=== PATIENT | male | born 1950 | race Caucasian/White ===

== ENCOUNTER 2016-06-01 16:02 | Emergency (ER) | payer OTHER ==
[~2016-06-01] VITALS: Ht 172.7 cm; Wt 87.0 kg
[2016-06-01 16:40] LABS: HEMATOCRIT 41.6 % (38.0-50.0); MCH 31.9 PG (29.0-34.0); MCHC 34.4 G/DL (30.0-36.0); MCV 92.9 FL (86-99); MEAN PLAT.VOLUME 10.7 uM^3 (9.0-12.4); PLATELET COUNT 260 K/uL (156-360); RBC DIS.WIDTH-CV 11.9 % (11.8-14.6); RBC DIS.WIDTH-SD 39.5 % (39-53); RED BLOOD COUNT 4.48 M/uL (4.00-5.50); WHITE BLOOD COUNT 7.6 K/uL (4.1-10.2)
[2016-06-01 16:56] LABS: CHLORIDE 105 mEq/L (99-109); POTASSIUM 4.5 mEq/L (3.7-5.4); SODIUM 136 mEq/L (136-147)
[2016-06-01 16:58] LABS: GLUCOSE 87 mg/dL (70-99)
[2016-06-01 16:59] LABS: ANION GAP 10 MEQ/L (2-14)
[2016-06-01 17:02] LABS: GFR ESTIMATE (CALCULATED) > 59 mL/min/
[2016-06-01 17:03] LABS: TROP-I INTERPRETATION NEGATIVE; TROPONIN-I < 0.01 ng/mL (0.0-0.30); UREA NITROGEN (BUN) 9 mg/dL (9-23)
[2016-06-01 19:50] LABS: BILIRUBIN NEGATIVE; BLOOD NEGATIVE; COLOR YELLOW ((YELLOW)); GLUCOSE (STRIP) NEGATIVE; KETONES NEGATIVE; LEUKOCYTES NEGATIVE; NITRITE NEGATIVE; PROTEIN (STRIP) NEGATIVE; UROBILINOGEN 0.2 MG/DL (0.2-1.0)
[2016-06-01 19:55] LABS: ADD MIUA? NO
[2016-06-01] MEDS ORDERED: BENICAR40 MG PO (20:45)
[2016-06-01] MEDS ORDERED: SYNTHROID125 MCG PO (20:45)
[2016-06-01 20:46] VITALS: BP 134/71
== END 2016-06-01 20:47 | disposition home or self-care (01) ==
LOC: EME 16:02
PROVIDERS: Physician Assistant
DX: R00.2 Palpitations (principal); E78.5 Hyperlipidemia, unspecified; I10 Essential (primary) hypertension; I25.2 Old myocardial infarction; Z87.442 Personal history of urinary calculi; E03.9 Hypothyroidism, unspecified; Z98.61 Coronary angioplasty status; Z87.891 Personal history of nicotine dependence
CPT/HCPCS: 71020; 80048; 81003; 83735; 84443; 84484; 85027; 93005; 99281; 99284

== ENCOUNTER 2017-06-07 01:23 | Emergency (ER) | payer OTHER ==
[~2017-06-07] VITALS: Ht 172.7 cm; Wt 92.5 kg
[~2017-06-07 01:23] MED LIST: BENICAR40 MG PO; SYNTHROID125 MCG PO
[2017-06-07 02:24] LABS: HEMATOCRIT 40.4 % (38.0-50.0); HEMOGLOBIN 13.8 G/DL (12.5-16.6); MCH 32.2 PG (29.0-34.0); MCHC 34.2 G/DL (30.0-36.0); MCV 94.4 FL (86-99); PLATELET COUNT 229 K/uL (156-360); RBC DIS.WIDTH-CV 12.1 % (11.8-14.6); RBC DIS.WIDTH-SD 42.4 % (39-53); RED BLOOD COUNT 4.28 M/uL (4.00-5.50); WHITE BLOOD COUNT 5.8 K/uL (4.1-10.2)
[2017-06-07 02:36] LABS: CHLORIDE 102 mEq/L (99-109); POTASSIUM 4.2 mEq/L (3.7-5.4); SODIUM 134 mEq/L (136-147)
[2017-06-07 02:37] LABS: GLUCOSE 101 mg/dL (70-99)
[2017-06-07 02:41] LABS: GFR ESTIMATE (CALCULATED) > 59 mL/min/ (58.99-99999)
[2017-06-07 02:42] LABS: UREA NITROGEN (BUN) 10 mg/dL (9-23)
[2017-06-07 02:46] LABS: TROP-I INTERPRETATION NEGATIVE; TROPONIN-I < 0.01 ng/mL (0.0-0.30)
[2017-06-07] MEDS ORDERED: TOPROL XL25 MG PO (04:10)
[2017-06-07] MEDS ORDERED: LANSOPRAZOLE30 MG PO (04:10)
[2017-06-07] MEDS ORDERED: ERGOCALCIF50000 UNIT PO (04:11)
[2017-06-07] MEDS ORDERED: LIPITOR40 MG PO (04:12)
[2017-06-07] MEDS ORDERED: ASPIRIN325 MG PO (04:12)
[2017-06-07 09:03] LABS: TROP-I INTERPRETATION NEGATIVE; TROPONIN-I < 0.01 ng/mL (0.0-0.30)
[2017-06-07 10:39] VITALS: BP 150/80
== END 2017-06-07 10:41 | disposition left against medical advice (07) ==
LOC: EME 01:23
PROVIDERS: Emergency Medicine
DX: R07.89 Other chest pain (principal); I44.4 Left anterior fascicular block; I10 Essential (primary) hypertension; E78.5 Hyperlipidemia, unspecified; I25.2 Old myocardial infarction; Z87.891 Personal history of nicotine dependence; Z95.1 Presence of aortocoronary bypass graft; Z95.5 Presence of coronary angioplasty implant and graft; K21.9 Gastro-esophageal reflux disease without esophagitis
CPT/HCPCS: 71046; 80048; 84484; 85027; 93005